=== PATIENT | female | born 2000 | race African-American/Black ===

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

== ENCOUNTER 2022-09-11 08:52 | Emergency (ER) | payer OTHER ==
[~2022-09-11] VITALS: Ht 162.5 cm; Wt 72.6 kg
[~2022-09-11 08:52] MED LIST changes: +CLINDAMYCIN150 MG PO
[2022-09-11 09:08] VITALS: BP 112/61
[2022-09-11 09:32] LABS: BASO % 0.7 % (0.0-1.0); EOS # 0.1 10*3/uL (0.0-0.4); EOS % 1.8 % (1.0-4.0); HEMATOCRIT 40.6 % (37.0-47.0); LYMPH # 2.4 10*3/uL (1.3-4.4); MEAN CELL VOLUME 92.5 fl (81.0-99.0); MEAN CORPUSCULAR HGB 30.1 pg (27.0-31.0); MEAN CORPUSCULAR HGB CONC 32.5 g/dl (33.0-37.0); MEAN PLATELET VOLUME 9.4 fl (9.6-12.3); MONO # 0.4 10*3/uL (0.1-1.0); MONO % 7.9 % (3.0-9.0); NEUT # 2.5 10*3/uL (2.3-7.9); NEUT % 45.9 % (47.0-73.0); PLATELET COUNT AUTOMATED 322 10*3/uL (130-400); RED BLOOD COUNT 4.39 10*6/uL (4.10-5.10); RED CELL DISTRI WIDTH 12.5 % (0-14.5); WHITE BLOOD COUNT 5.5 10*3/uL (4.8-10.8)
[2022-09-11 09:44] LABS: ACT PARTIAL THROMBO TIME 29.8 SECONDS (20.0-32.1); INTERNATIONAL NORM RATIO 1.1 (2.0-3.5)
[2022-09-11 09:49] LABS: ALKALINE PHOSPHATASE 55 U/L (46-116); CHLORIDE 108 mmol/L (98-107); CREATININE 0.62 mg/dL (0.55-1.02); LIPASE 25 U/L (12-53); POTASSIUM 3.4 mmol/L (3.4-5.1); SGPT/ALT 7 U/L (10-49); SODIUM 141 mmol/L (136-145); TOTAL PROTEIN 6.9 gm/dL (6.0-8.0)
[2022-09-11 09:51] LABS: BUN < 5 mg/dl (9-23)
== END 2022-09-11 10:32 | disposition home or self-care (01) ==
LOC: ED 08:52
PROVIDERS: Family Medicine
DX: R00.2 Palpitations (principal)

== ENCOUNTER 2023-05-16 12:00 | Emergency (ER) | payer OTHER ==
[~2023-05-16] VITALS: Ht 160 cm; Wt 72.6 kg
[2023-05-16 12:09] VITALS: BP 113/74
[2023-05-16] MEDS ORDERED: AMOX-CLAV 875-1 EACH PO (12:46)
[2023-05-16] MEDS ORDERED: IBUPROFEN600 MG PO (12:46)
== END 2023-05-16 13:06 | disposition home or self-care (01) ==
LOC: ED 12:00
DX: S80.11XA Contusion of right lower leg, initial encounter (principal); W54.0XXA Bitten by dog, initial encounter; Y93.89 Activity, other specified; Y92.89 Other specified places as the place of occurrence of the external cause; Y99.8 Other external cause status